=== PATIENT | male | born 1970 | race Caucasian/White ===

== ENCOUNTER 2017-12-23 12:43 | Emergency (ER) | payer OTHER ==
[2017-12-23] MEDS ORDERED: ALBUTEROL/IPRATROPIUM 3 ML NEB NEB ONE (12:55)
[2017-12-23] MEDS ORDERED: FAMOTIDINE(*) 20MG/50ML PREMIX 50 ML IVPB ONE (12:55)
--- NOTE | 2017-12-23 12:57 | ER Report ---
History and Physical Time Seen By MD: 12:47 HPI/ROS CHIEF COMPLAINT: Allergic reaction HISTORY OF PRESENT ILLNESS: This is a 47-year-old male presents to the emergency department via EMS for an allergic reaction. Patient states that he was stung by a wasp in his lip today no history of allergic reactions over today he developed sudden onset of circumoral edema, tongue swelling or shortness of breath swelling of the ears and face. Upon arrival EMS did give 0.3 mg of subcutaneous epinephrine, 125 mg of Solu-Medrol, 50 mg of IV Benadryl. Upon arrival the patient states he has significant relief of his symptoms. He still has some swelling to the face and lip and tongue however significant improved according the patient. No distress at this time. Patient is otherwise healthy, no other complaints no fevers or chills. No nausea or vomiting. No chest pain or shortness of breath. REVIEW OF SYSTEMS: Constitutional: No fever, no chills. Eyes: No discharge. ENT: As above. Cardiovascular: No chest pain, no palpitations. Respiratory: No cough, no shortness of breath. Gastrointestinal: No abdominal pain, no vomiting. Genitourinary: No hematuria. Musculoskeletal: No back pain. Skin: As above. Neurological: No headache. Allergies: Coded Allergies: No Known Drug Allergies (Unverified , 12/23/17) Home Meds Active Scripts Epinephrine (EPIPEN 2-DOE) 0.3 Mg/0.3 Ml Pen.injctr, 0.3 MG IM PRN, #1 PACK Prov:FELICITAS THAO [facility] 12/23/17 Prednisone (PREDNISONE) 20 Mg Tablet, 20 MG PO BID, #10 TAB Prov:FELICITAS THAO [facility] 12/23/17 Past Medical/Surgical History The patient has no significant past medical or surgical history. Reviewed Nurses Notes: Yes Constitutional Vital Sign - Last 24 Hours 12/23/17 12/23/17 12/23/17 12/23/17 12:55 13:04 13:10 13:13 Temp 99.6 Pulse 95 110 93 99 Resp 12 18 12 18 B/P (MAP) 161/98 147/86 (106) Pulse Ox 95 O2 Delivery Room Air Nasal Cannula O2 Flow Rate 2 12/23/17 14:44 Pulse 86 Resp 18 B/P (MAP) 146/84 (104) Pulse Ox 92 O2 Delivery Room Air Physical Exam General Appearance: The patient is alert, has no immediate need for airway protection and no signs of toxicity. Eyes: Pupils equal and round no pallor or injection. ENT, Mouth: Mucous membranes are moist. Mild swelling of the tongue and soft palate as well as the lips, ears bilaterally. Erythema to the posterior oropharynx. Respiratory: There are no retractions, lungs are clear to auscultation, except slightly diminished in the right lower base. Cardiovascular: Regular rate and rhythm. Gastrointestinal: Abdomen is soft and non tender, no masses, bowel sounds normal. Neurological: Alert and oriented 4. Moving all extremities. Following. No focal neuro deficits. Skin: Swelling to the lips, ears bilaterally oral mucosa and tongue with f lushing of the skin. Musculoskeletal: Neck is supple non tender. Extremities are nontender, nonswollen and have full range of motion. DIFFERENTIAL DIAGNOSIS: After history and physical exam differential diagnosis was considered for anaphylaxis. Medical Decision Making ED Course/Re-evaluation Clinical Indication for ER IV: Hydration, IV Access ED Course The patient was admitted to room via EMS. A history and physical obtained. Differential diagnoses were considered. An IV was started via EMS. Prior to arrival the patient was given 0.3 mg subcutaneous epinephrine, 125 mg Solu- Medrol, 50 mg IV Benadryl. Upon arrival patient had significant relief of his anaphylactic reaction, swelling had mostly resolved, he did still have some swelling to the upper lip, mild swelling to his tongue and mucosa as well as his ears. Patient was also given a DuoNeb in the emergency department, as well as 20 mg IV famotidine. Did monitor the patient for approximate 2 hours, patient had no rebound reaction. Patient was also given a 1 L normal saline bolus. I did send the patient home with a prescription for EpiPen's as well as prednisone. I did tell the patient that he must fill these today, keep one EpiPen with him at all times and start taking the prednisone tomorrow. The patient expressed understanding and is discharged home. Patient ambulated out. At the time of discharge patient had very minimal swelling to the upper lip. No other questions and concerns at this time. Decision to Disposition Date: Dec 23, 2017 Decision to Disposition Time: 14:14 Depart Departure Latest Vital Signs Vital Signs Date Time Temp Pulse Resp B/P (MAP) Pulse Ox O2 Delivery O2 Flow Rate FiO2 10/20/18 14:44 86 18 146/84 (104) 92 Room Air 12/23/17 13:13 2 12/23/17 13:04 99.6 Impression: Primary Impression: Anaphylactic reaction Additional Impression: Wasp sting-induced anaphylaxis Condition: Improved Disposition: HOME OR SELF-CARE New Scripts Epinephrine (EPIPEN 2-DOE) 0.3 Mg/0.3 Ml Pen.injctr 0.3 MG IM PRN, #1 PACK Prov: FELICITAS THAO- 12/23/17 Prednisone (PREDNISONE) 20 Mg Tablet 20 MG PO BID, #10 TAB Prov: FELICITAS THAOP-BC 12/23/17 Patient Instructions: Anaphylaxis (ED), Insect Bite or Sting (ED) Additional Instructions: Be sure to get the Epi-pen and prednisone filled today. Keep the EpiPen with you at all times. If you use the EpiPen please follow-up in the near emergency department. Take the prednisone as prescribed. You can take 25-50 mg of Benadryl every 4-6 hours as needed for recurrent swell ing. You can also take 20 mg of famotidine once a day for the next 5 days. Drink plenty of water. Get plenty of rest. Return to the emergency department for any other concerns or worsening symptoms. Problem Qualifiers Primary Impression: Anaphylactic reaction Encounter type: initial encounter Qualified Codes: T78.2XXA - Anaphylactic shock, unspecified, initial encounter Additional Impression: Wasp sting-induced anaphylaxis Encounter type: initial encounter Injury intent: undetermined intent Qualified Codes: T63.464A - Toxic effect of venom of wasps, undetermined, initial encounter FELICITAS THAO [facility]- Dec 23, 2017 12:57
[2017-12-23] MEDS ORDERED: EMS NS 0.9%(*) 1000 ML BAG 1,000 ML IV ONE (13:00)
[2017-12-23] MEDS ORDERED: EPIN0.3P15 IM (13:34)
[2017-12-23] MEDS ORDERED: PRED20TA6 PO (13:34)
[2017-12-23 14:44] VITALS: BP 146/84
== END 2017-12-23 14:47 | disposition home or self-care (01) ==
LOC: EDUNIT# 12:43 → ER 12:49
DX: T63.461A Toxic effect of venom of wasps, accidental (unintentional), initial encounter (principal); T78.2XXA Anaphylactic shock, unspecified, initial encounter
CPT/HCPCS: 94640; 96365; 99283; J3490; J7620

== ENCOUNTER → 2017-12-23 | Outpatient (CLI) | payer OTHER ==
[~2017-12-23] MED LIST: EPIN0.3P15 IM; PRED20TA6 PO
== END ==
LOC: AMB 12:28
PROVIDERS: ATTEND Nurse Practitioner
DX: T63.91XA Toxic effect of contact with unspecified venomous animal, accidental (unintentional), initial encounter (principal); J80 Acute respiratory distress syndrome; F41.1 Generalized anxiety disorder; R60.1 Generalized edema
CPT/HCPCS: A0425; A0433